=== PATIENT | male | born 1990 | race Caucasian/White ===

== ENCOUNTER 2023-05-25 13:23 | Emergency (ER) | payer OTHER ==
[~2023-05-25] VITALS: Ht 180.3 cm; Wt 83.9 kg
[2023-05-25 13:32] VITALS: TEMP 98.3
[2023-05-25] MEDS ORDERED: LIDOCAINE HCL/MPF 1% 30 ML VIAL IJ ONE (14:07)
[2023-05-25] MEDS ORDERED: TDAP [DIPH/PERTUSSIS/TET] 0.5 ML VIAL IM ONE ×2 (14:30→15:01)
[2023-05-25] MEDS ORDERED: BACI/NEOM/POLY B OINT PKT 1 UDPKT PACKET TP ONE (14:30)
[2023-05-25] MEDS ORDERED: BACI/NEOM/POLY B OINT PKT 1 UDPKT PACKET ONE (15:01)
[2023-05-25] MEDS ORDERED: IBUP-1955 PO (15:12)
[2023-05-25 15:51] VITALS: BP 130/84; O2SAT 99
== END 2023-05-25 15:30 | disposition home or self-care (01) ==
LOC: ER 13:26
DX: S31.119A Laceration without foreign body of abdominal wall, unspecified quadrant without penetration into peritoneal cavity, initial encounter (principal); W45.8XXA Other foreign body or object entering through skin, initial encounter; Y93.89 Activity, other specified; Y92.89 Other specified places as the place of occurrence of the external cause; Y99.8 Other external cause status
CPT/HCPCS: 12002; 90471; 90715; 99283; A6403; J3490